=== PATIENT | female | born 1965 | race African-American/Black ===

== ENCOUNTER 2024-12-29 22:36 | Emergency (ER) | payer OTHER ==
[~2024-12-29] VITALS: Ht 175.3 cm; Wt 90.0 kg
[2024-12-29 22:39] VITALS: TEMP 98.4; O2SAT 98
[2024-12-29] MEDS: SODIUM CHLORIDE 0.9% 1,000 ML IV ONE (23:31)
[2024-12-29 23:44] LABS: BASOPHILS % 0.5 % (0.0-2.0); EOSINOPHILS % 0.2 % (0.0-5.0); HEMATOCRIT. 27.0 % (36.0-48.0); HEMOGLOBIN. 8.1 g/dL (12.0-16.0); LYMPHOCYTES % 13.1 % (20.0-50.0); MEAN PLATELET VOLUME 9.2 fl (7.4-10.4); MONOCYTES % 8.0 % (2.0-8.0); NEUTROPHILS % 78.2 % (40.0-76.0); PLATELET 291 x1000/uL (130-400); RED BLOOD CELL COUNT 3.78 mill/uL (4.2-5.4); RED CELL DISTRIBUTION WIDTH 19.5 % (11.6-14.6)
[2024-12-30 00:06] LABS: CREATININE 1.3 mg/dL (0.6-1.0); UREA NITROGEN BLOOD 19 mg/dL (9-23)
[2024-12-30 00:08] LABS: ASPARTATE AMINOTRANSFERASE 22 IU/L (<34); BILIRUBIN DIRECT 0.1 mg/dL (<=3.0); BILIRUBIN TOTAL 0.4 mg/dL (0.1-1.0); PROTEIN TOTAL 7.6 g/dL (6.0-8.3)
[2024-12-30] MEDS ORDERED: FERR325T6 MT (01:09)
[2024-12-30 01:38] VITALS: BP 115/70; PULSE 70; RESP 16; O2SAT 100
== END 2024-12-30 01:39 | disposition home or self-care (01) ==
LOC: ER 22:36
DX: R53.1 Weakness (principal); R42 Dizziness and giddiness; I95.9 Hypotension, unspecified; D64.9 Anemia, unspecified
CPT/HCPCS: 99284; 96360; 80076; 80048; 83735; 85025; 36415; 93005; J7030